=== PATIENT | female | born 1955 | race Caucasian/White ===

== ENCOUNTER → 2017-08-06 | Day surgery (SDC) | payer MEDICARE, MEDICAID ==
[~2017-08-06] MED LIST: Dextrose 5%-0.45% NaCl 1,000 ML IV SCH; Midazolam 1 MG/ML 2 ML SDV IV ONE; Midazolam 1 MG/ML 2 ML SDV ONE; Sodium Chloride 0.9% 10 ML Syringe FLUSH PRN; fentaNYL 100 MCG/2 ML SDV IV ONE; fentaNYL 100 MCG/2 ML SDV ONE
--- NOTE | 2017-08-06 08:35 | OR ---
DATE: 08/06/2017 PROCEDURES: Esophagogastroduodenoscopy and multiple pinch biopsies. INSTRUMENT USED: GIF-H180 Olympus video panendoscope. PREMEDICATIONS: No oral topical anesthesia used. Fentanyl 100 mcg intravenous, Versed 2 mg intravenous. Nasal 2 L O2 cannula. The procedure was done under pulse oximetry, BP recording, and pvc monitor. INDICATION: The patient with known celiac disease, on gluten-free diet. DESCRIPTION OF PROCEDURE: Followup esophagogastroduodenoscopy is performed for endoscopic assessment as well as microscopic evidence for any presence of duodenal atrophy related to celiac disease, endoscopic hemostasis therapy if needed. The scope was passed with ease. Adequate visualization of the esophagus was made from proximal to distal areas. No upper esophageal lesions identified. No distal esophageal stricture. No uphill or downhill esophageal varices. No Joseline-Betancourt tear. No evidence of erosive esophagitis by Montague criteria. No esophageal polyp or tumor mass identified. Z-line was seen at around 40 cm distal to the oral verge, configuration consistent with grade 1 by ZAP classification. No esophageal polyp or tumor mass identified. No proximal gastric varices noted. Gastric fundus examination by retroflexion showed no polypoid lesions. No gastric ulcer, malignant mass, or vascular ectasia identified. Duodenal bulb showed no ulcer. Visualized second part of the duodenum was unremarkable. Multiple pinch biopsies, four in number, were taken from different areas of the second part of the duodenum; and tissues were also obtained from the duodenal bulb at 9 o'clock and 12 o'clock positions and sent for any histopathologic evidence of celiac disease. No bleeding was noted from any of the visualized areas at the completion of examination. Photographs were taken of the duodenal bulb, gastric antrum, fundus, and distal esophagus. IMPRESSION: Celiac disease. The patient tolerated the procedure well. [facility] /[id number]
== END | disposition home or self-care (01) ==
LOC: DL.ENDO 05:24
PROVIDERS: ATTEND Internal Medicine Gastroenterology
DX: K29.80 Duodenitis without bleeding (principal); E66.9 Obesity, unspecified; F41.1 Generalized anxiety disorder; F32.9 Major depressive disorder, single episode, unspecified; E78.5 Hyperlipidemia, unspecified; Z88.8 Allergy status to other drugs, medicaments and biological substances
CPT/HCPCS: J2250; J3010; J7042

== ENCOUNTER 2017-09-10 05:35 | Day surgery (SDC) | payer MEDICARE, MEDICAID ==
[2017-09-10] MEDS ORDERED: Midazolam 1 MG/ML 2 ML SDV IV ONE ×7 (05:36→07:15)
[2017-09-10] MEDS ORDERED: fentaNYL 100 MCG/2 ML SDV IV ONE ×4 (05:36→07:17)
[2017-09-10] MEDS ORDERED: Dextrose 5%-0.45% NaCl 1,000 ML IV SCH (06:00)
[2017-09-10] MEDS ORDERED: Sodium Chloride 0.9% 10 ML Syringe FLUSH PRN (06:00)
[2017-09-10] MEDS ORDERED: fentaNYL 100 MCG/2 ML SDV ONE (06:16)
[2017-09-10] MEDS ORDERED: Midazolam 1 MG/ML 2 ML SDV ONE (06:16)
--- NOTE | 2017-09-10 07:48 | OR ---
DATE: 09/10/2017 PROCEDURE PERFORMED: Total colonoscopy. INSTRUMENT USED: CF-H180AL Olympus video colonoscope. PREMEDICATIONS: Fentanyl 125 mcg intravenous, Versed 4 mg intravenous. Nasal O2 cannula. The procedure was done under pulse oximetry, BP recording, and school lunch monitor. INDICATION: The patient with high-risk family history for colon cancer. Screening colonoscopic examination is done for detection of any polypoid lesions and removal, endoscopic hemostasis therapy if needed. DESCRIPTION OF PROCEDURE: Initial rectal exam was unremarkable. Rigid anoscopy was normal. The colonoscope was passed with ease up to the ileocecal area, photographs were taken of the normal-appearing cecum identified by landmarks of appendiceal orifice and double-bulged ileocecal folds. No bleeding was noted from any of the visualized areas at the commencement of the examination. No stricture. No vascular ectasia. No large isolated ulcerations seen. No evidence of diffuse inflammatory bowel disease in the form of friability, contact bleeding, or ulcerations. No polyp or tumor mass identified. Probing the proximal sides of folds and flexures, using adequate distention and clearing up the stool material, withdrawal of the scope was made, cecum to rectum time over 6 minutes. There was moderate amount of liquid fecal material that had to be aspirated, and the examination was found to be adequate. IMPRESSION: Normal study. The patient tolerated the procedure well. [facility] /[id number]
[2017-09-10 10:55] VITALS: BP 119/72
== END 2017-09-10 09:09 | disposition home or self-care (01) ==
LOC: DL.ENDO 05:35
PROVIDERS: ATTEND Internal Medicine Gastroenterology
DX: Z12.11 Encounter for screening for malignant neoplasm of colon (principal); Z80.0 Family history of malignant neoplasm of digestive organs; E66.09 Other obesity due to excess calories; E78.5 Hyperlipidemia, unspecified; F41.9 Anxiety disorder, unspecified; F32.9 Major depressive disorder, single episode, unspecified
CPT/HCPCS: G0105; J2250; J3010; J7042

== ENCOUNTER 2020-10-06 05:19 | Day surgery (SDC) | payer MEDICARE, MEDICAID ==
[~2020-10-06 05:19] MED LIST changes: -Dextrose 5%-0.45% NaCl 1,000 ML IV SCH; -Midazolam 1 MG/ML 2 ML SDV IV ONE; -Sodium Chloride 0.9% 10 ML Syringe FLUSH PRN; -fentaNYL 100 MCG/2 ML SDV IV ONE
[2020-10-06] MEDS ORDERED: Midazolam 1 MG/ML 2 ML SDV IV ONE ×3 (05:20→06:43)
[2020-10-06] MEDS ORDERED: fentaNYL 100 MCG/2 ML SDV IV ONE ×3 (05:20→06:42)
[2020-10-06] MEDS ORDERED: Sodium Chloride 0.9% 10 ML Syringe FLUSH PRN (06:00)
[2020-10-06] MEDS ORDERED: Dextrose 5%-0.45% NaCl 1,000 ML IV SCH (06:00)
--- NOTE | 2020-10-06 08:36 | OR ---
DATE: 10/06/2020 PROCEDURE: Esophagogastroduodenoscopy and multiple pinch biopsies. INSTRUMENT USED: GIF-HQ190 Olympus video panendoscope. PREMEDICATIONS: No oral or topical anesthesia used. Fentanyl 100 mcg intravenous, Versed 2 mg intravenous, nasal O2 cannula. The procedure was done under pulse oximetry, BP recording, and school bus monitor. INDICATION: The patient with known celiac disease on gluten free diet with persistent heartburn, regurgitation, and coughing spells, unexplained and not responsive to medical measures, on high-dose PPI. Esophagogastroduodenoscopy is performed for detection of any active erosive lesions, Scales esophagus and/or malignancy also under consideration, H pylori status to be determined, biopsies to be obtained for any evidence of celiac disease activity, endoscopic hemostasis therapy if needed. PROCEDURE IN DETAIL: The scope was passed with ease. Adequate visualization of the esophagus was made from proximal to distal areas. No upper esophageal lesions identified. No distal esophageal stricture. No uphill or downhill esophageal varices. No Joseline-Betancourt tear. No evidence of erosive esophagitis by Regina criteria. No esophageal polyp or tumor mass identified. Z-line was seen at around 40 cm distal to the oral verge. No proximal gastric varices noted. Gastric fundus examination by retroflexion showed no polypoid lesions. No gastric ulcer, malignant mass, or vascular ectasia identified. Duodenal bulb showed no ulcer. Visualized second part of the duodenum was unremarkable. Multiple pinch biopsies, 4 in number, were taken from multiple areas of the second part of the duodenum and tissues were also obtained from the duodenal bulb at 9 and 12 o'clock positions and sent for any histopathologic evidence of celiac disease. Multiple pinch biopsies were also taken from the gastric antrum and proximal body and sent for PyloriTek test for H pylori and histopathology. Four-quadrant biopsies were taken from the distal and proximal esophagus and sent for any histopathologic evidence of eosinophilic esophagitis. No bleeding was noted from any of the visualized areas at the completion of examination. Photographs were taken of the duodenal bulb, gastric antrum, fundus, and distal esophagus. IMPRESSION: Normal study. The patient tolerated the procedure well. [facility] /[id number] [facility]
[2020-10-06 09:32] VITALS: BP 114/82; PULSE 76
== END 2020-10-06 08:57 | disposition home or self-care (01) ==
LOC: DL.ENDO 05:19
PROVIDERS: ATTEND Internal Medicine Gastroenterology
DX: K90.0 Celiac disease (principal); K21.9 Gastro-esophageal reflux disease without esophagitis; I10 Essential (primary) hypertension; E78.5 Hyperlipidemia, unspecified; E66.09 Other obesity due to excess calories; Z98.890 Other specified postprocedural states; Z88.8 Allergy status to other drugs, medicaments and biological substances; Z68.32 Body mass index [BMI] 32.0-32.9, adult
CPT/HCPCS: 87077; 88305; J2250; J3010; J7042

== ENCOUNTER 2023-08-24 18:32 | Observation (INO) | payer MEDICARE, MEDICAID ==
[2023-08-24] MEDS: Sodium Chloride 0.9% 500 ML IV ONE (19:45)
[2023-08-24 19:46] LABS: BASOPHILS PERCENT AUTO 0.6 % (0.0-1.0); HEMATOCRIT 36.5 % (37.0-47.0); HEMOGLOBIN 12.2 g/dL (12.0-16.0); LYMPHOCYTES PERCENT AUTO 22.3 % (20.5-50.1); MEAN CORPUSCULAR HEMOGLOBIN 29.8 pg (27.0-34.0); MEAN CORPUSCULAR HGB CONC 33.4 g/dL (33.0-35.0); MONOCYTES PERCENT AUTO 12.3 % (2-8); NEUTROPHILS PERCENT AUTO 61.8 % (42.2-75.2); PLATELET COUNT,PLT 202 10^3/uL (150-450); WHITE BLOOD CELL COUNT,WBC 4.9 10^3/uL (5.0-10.0)
[2023-08-24] MEDS: Sodium Chloride 0.9% 10 ML Syringe FLUSH PRN (19:51)
[2023-08-24 20:07] LABS: A/G RATIO 0.9; ALBUMIN 3.7 g/dL (3.4-5.0); BILIRUBIN TOTAL 0.9 mg/dL (0.2-1.0); BUN/CREATININE RATIO 27.5 (No establ ref range); C-REACTIVE PROTEIN 0.74 ng/dL (<=0.50); CALCIUM 9.3 mg/dL (8.5-10.1); CREATININE 0.69 mg/dL (0.55-1.02); EST CRCL DRUG DOSING (CG) 72.04 mL/min; MAGNESIUM 1.9 mg/dL (1.8-2.4); PROTEIN TOTAL,TP 7.8 g/dL (6.4-8.2)
[2023-08-24 20:19] LABS: SEDIMENTATION RATE MANUAL 27 mm/hr (0-20)
[2023-08-24] MEDS: Sodium Chloride 0.9% 1,000 ML IV ONE (21:43)
[2023-08-24] MEDS: Ketorolac 30 MG/ML SDV IVPUSH ONE (21:45)
[2023-08-25 02:35] LABS: AMPHETAMINES,URINE NEGATIVE (NEGATIVE); BARBITURATES,URINE NEGATIVE (NEGATIVE); BENZODIAZEPINE,URINE NEGATIVE (NEGATIVE); MDMA (ECSTASY), URINE NEGATIVE (NEGATIVE); METHADONE,URINE NEGATIVE (NEGATIVE); METHAMPHETAMINES,URINE NEGATIVE (NEGATIVE); OPIATES,URINE NEGATIVE (NEGATIVE); OXYCODONE,URINE NEGATIVE (NEGATIVE); PHENCYCLIDINE,URINE NEGATIVE (NEGATIVE); TCA,URINE NEGATIVE (NEGATIVE)
[2023-08-25] MEDS: Sodium Chloride 0.9% 1,000 ML IV SCH (03:34)
[2023-08-25 06:06] LABS: BASOPHILS PERCENT AUTO 0.6 % (0.0-1.0); EOSINOPHILS PERCENT AUTO 3.2 % (1.0-3.0); HEMATOCRIT 33.4 % (37.0-47.0); HEMOGLOBIN 10.8 g/dL (12.0-16.0); LYMPHOCYTES PERCENT AUTO 23.1 % (20.5-50.1); MEAN CORPUSCULAR HEMOGLOBIN 29.7 pg (27.0-34.0); MEAN CORPUSCULAR HGB CONC 32.3 g/dL (33.0-35.0); MEAN CORPUSCULAR VOLUME 91.8 fL (80-100); MONOCYTES PERCENT AUTO 18.7 % (2-8); NEUTROPHILS PERCENT AUTO 54.4 % (42.2-75.2); PLATELET COUNT,PLT 174 10^3/uL (150-450); RED BLOOD CELL COUNT 3.64 10^6/uL (4.2-5.4); WHITE BLOOD CELL COUNT,WBC 3.4 10^3/uL (5.0-10.0)
[2023-08-25 06:22] LABS: CALCIUM 8.3 mg/dL (8.5-10.1); CREATININE 0.7 mg/dL (0.55-1.02); EST CRCL DRUG DOSING (CG) 68.25 mL/min
[2023-08-25] MEDS: Enoxaparin 40 MG/0.4 ML Syringe SUBCUT SCH (09:06)
[2023-08-25] MEDS: Acetaminophen 325 MG Tab PO PRN (09:06)
[2023-08-25] MEDS ORDERED: Pantoprazole 40 MG Tab.CR PO PRN (09:09)
[2023-08-25] MEDS ORDERED: Albuterol 6.7 GM Inhaler **OWN MED INH PRN (09:09)
[2023-08-25 09:39] LABS: APPEARANCE,URINE CLEAR (CLEAR); BILIRUBIN,URINE NEGATIVE (NEGATIVE); COLOR,URINE YELLOW (YELLOW); GLUCOSE,URINE NEGATIVE (NEGATIVE); KETONES,URINE NEGATIVE (NEGATIVE); LEUKOCYTE ESTERASE,URINE NEGATIVE (NEGATIVE); NITRITE,URINE NEGATIVE (NEGATIVE); OCCULT BLOOD,URINE NEGATIVE (NEGATIVE); PH,URINE 6.5 (5.0-9.0); PROTEIN,URINE NEGATIVE (NEGATIVE); UROBILINOGEN,URINE 0.2 mg/dL (0.2-1.0)
[2023-08-25] MEDS: FLUTICASONE NASBOTH SCH (11:33)
[2023-08-25] MEDS: Pantoprazole 40 MG Tab.CR **OWN MED PO SCH (11:34)
[2023-08-25] MEDS: SERTRALINE 100 MG PO SCH (11:34)
[2023-08-25] MEDS: DOCUSATE SODIUM PO PRN (11:35)
[2023-08-25] MEDS: SENNOSIDES PO PRN (11:35)
[2023-08-25] MEDS: guaiFENesin 600 MG Tab.ER PO SCH (12:34)
[2023-08-25] MEDS: Benzonatate 100 MG Cap PO PRN (12:34)
[2023-08-25] MEDS: Benzocaine/Cetylpyridinium/Menthol Lozenge MUCMEM PRN (12:35)
[2023-08-25] MEDS: BUDESONIDE 0.5 MG/2 ML NEB SCH (18:06)
[2023-08-25] MEDS: ROSUVASTATIN CALCIUM 20 MG PO SCH (20:12)
[2023-08-26] MEDS: Iopamidol 612 MG/ML 100 ML Bottle IVPUSH ONE (13:10)
[2023-08-26 14:07] VITALS: BP 135/68; PULSE 94
== END 2023-08-26 15:14 | disposition home or self-care (01) ==
LOC: DL.ED 18:32 → DL.MS 21:30 → INTOOBSV 21:30
PROVIDERS: ADMIT Family Medicine Adult Medicine; ATTEND Internal Medicine
DX: T44.3X1A Poisoning by other parasympatholytics [anticholinergics and antimuscarinics] and spasmolytics, accidental (unintentional), initial encounter (principal); R53.1 Weakness; N39.0 Urinary tract infection, site not specified; M15.9 Polyosteoarthritis, unspecified; I10 Essential (primary) hypertension; R73.03 Prediabetes; D64.9 Anemia, unspecified; E78.00 Pure hypercholesterolemia, unspecified; K21.9 Gastro-esophageal reflux disease without esophagitis; F41.9 Anxiety disorder, unspecified; F32.A Depression, unspecified; Z88.8 Allergy status to other drugs, medicaments and biological substances; Z91.018 Allergy to other foods; Z79.899 Other long term (current) drug therapy
CPT/HCPCS: 36415; 71045; 73562; 74177; 80048; 80053; 80305; 81003; 82550; 83735; 84443; 84484; 85025; 85379; 85651; 86140; 93005; 97161; 97165; A9270; J1650; J1885; J7030; Q9967; 93010; 96360; 96361; 96372; 99222; 99238; 99284; 99284-25; G0378; J3490

== ENCOUNTER 2024-11-04 06:51 | Day surgery (SDC) | payer MEDICARE, MEDICAID ==
[2024-11-04] MEDS ORDERED: Lidocaine 1% 30 ML SDV INJECT ONE (07:00)
[2024-11-04] MEDS ORDERED: VANCOmycin 500 MG SDV EYERT ONE (07:00)
[2024-11-04] MEDS ORDERED: Ondansetron 4 MG/2 ML SDV IVPUSH PRN (07:00)
[2024-11-04] MEDS ORDERED: Acetaminophen/Codeine 300-30 MG Tab PO PRN (07:00)
[2024-11-04] MEDS ORDERED: Acetaminophen 325 MG Tab PO PRN (07:00)
[2024-11-04] MEDS: Proparacaine 0.5% Ophth Soln 15 ML Bottle EYERT ONE ×2 (07:53→08:29)
[2024-11-04] MEDS: Moxifloxacin 0.5% Ophth Soln 3 ML Bottle EYERT ONE (07:54)
[2024-11-04] MEDS: Povidone-Iodine 5% Sterile Ophth Soln 30 ML Bottle EYERT ONE ×2 (07:55→08:30)
[2024-11-04] MEDS: Tropicamide 1% Ophth Soln 15 ML Bottle EYERT ONE (07:56)
[2024-11-04] MEDS: Phenylephrine 10% Ophth Soln 5 ML Bot EYERT PRN (07:56)
[2024-11-04] MEDS: Cataract Ophth Solution EYERT ONE (07:58)
[2024-11-04] MEDS: Timolol Maleate 0.5% Ophth Soln 5 ML Bottle EYERT ONE (07:58)
[2024-11-04] MEDS: Apraclonidine 0.5% Ophth Soln 5 ML Bot EYERT ONE (08:30)
[2024-11-04] MEDS: Dexamethasone/Neomycin/Polymyxin B Ophth Oint 3.5 GM Tube EYERT ONE (08:31)
[2024-11-04] MEDS: Diclofenac Sodium 0.1% Ophth Soln 5 ML Bottle EYERT ONE (08:31)
[2024-11-04] MEDS: VANCOmycin 500 MG SDV EYERT ONE (08:32)
[2024-11-04] MEDS: Lidocaine 1% 30 ML SDV INJECT ONE (08:32)
[2024-11-04 09:12] VITALS: BP 132/73; PULSE 76
== END 2024-11-04 09:20 | disposition home or self-care (01) ==
LOC: DL.SDS 06:51
PROVIDERS: ATTEND Ophthalmology
DX: H25.811 Combined forms of age-related cataract, right eye (principal); K21.9 Gastro-esophageal reflux disease without esophagitis; F41.9 Anxiety disorder, unspecified; E78.5 Hyperlipidemia, unspecified; Z79.899 Other long term (current) drug therapy
CPT/HCPCS: A9270-GY; J2003; J3370; J3490

== ENCOUNTER 2024-11-18 06:51 | Day surgery (SDC) | payer MEDICARE, MEDICAID ==
[2024-11-18] MEDS ORDERED: Sodium Chloride 0.9% 10 ML Syringe IV ONE (06:52)
[2024-11-18] MEDS ORDERED: Midazolam 1 MG/ML 2 ML SDV IV ONE (06:52)
[2024-11-18] MEDS ORDERED: Dexamethasone 4 MG/ML SDV IV ONE (06:52)
[2024-11-18] MEDS ORDERED: Diclofenac Sodium 0.1% Ophth Soln 5 ML Bottle EYELF SCH (07:00)
[2024-11-18] MEDS ORDERED: Dexamethasone/Neomycin/Polymyxin B Ophth Oint 3.5 GM Tube EYELF ONE (07:00)
[2024-11-18] MEDS ORDERED: Apraclonidine 0.5% Ophth Soln 5 ML Bot EYELF ONE (07:00)
[2024-11-18] MEDS: Povidone-Iodine 5% Sterile Ophth Soln 30 ML Bottle EYELF ONE ×2 (07:24→08:14)
[2024-11-18] MEDS: Phenylephrine 10% Ophth Soln 5 ML Bot EYELF ONE (07:26)
[2024-11-18] MEDS: Cataract Ophth Solution EYELF ONE ×2 (07:27→07:39)
[2024-11-18] MEDS: Moxifloxacin 0.5% Ophth Soln 3 ML Bottle EYELF ONE (07:38)
[2024-11-18] MEDS: Timolol Maleate 0.5% Ophth Soln 5 ML Bottle EYELF ONE (07:39)
[2024-11-18] MEDS: Apraclonidine 0.5% Ophth Soln 5 ML Bot EYELF ONE (08:17)
[2024-11-18] MEDS: Diclofenac Sodium 0.1% Ophth Soln 5 ML Bottle EYELF ONE (08:18)
[2024-11-18] MEDS: Dexamethasone/Neomycin/Polymyxin B Ophth Oint 3.5 GM Tube EYELF ONE (08:18)
[2024-11-18 09:10] VITALS: BP 126/78; PULSE 84
[2024-11-18] MEDS ORDERED: Dexamethasone 4 MG/ML SDV ONE (10:51)
== END 2024-11-18 09:03 | disposition home or self-care (01) ==
LOC: DL.SDS 06:51
PROVIDERS: ATTEND Ophthalmology
DX: H25.812 Combined forms of age-related cataract, left eye (principal); K21.9 Gastro-esophageal reflux disease without esophagitis; E78.5 Hyperlipidemia, unspecified; F41.8 Other specified anxiety disorders; Z91.018 Allergy to other foods; Z79.899 Other long term (current) drug therapy
CPT/HCPCS: 66984; A9270; J1100; J2003; J2250; J3370; V2632; J3490